=== PATIENT | male | born 2000 | race Two or more races ===

== ENCOUNTER 2023-07-10 16:56 | Emergency (ER) | payer BC ==
[~2023-07-10] VITALS: Ht 170.2 cm; Wt 68.0 kg
== END 2023-07-10 22:58 | disposition home or self-care (01) ==
LOC: EMR PED 16:57 → ER 16:57 → EMR PED 19:35
DX: S00.93XA Contusion of unspecified part of head, initial encounter (principal); X58.XXXA Exposure to other specified factors, initial encounter; Y93.9 Activity, unspecified; Y92.9 Unspecified place or not applicable; Y99.9 Unspecified external cause status